=== PATIENT | female | born 1980 | race Two or more races ===

== ENCOUNTER 2024-04-02 18:04 | Emergency (ER) | payer BC ==
[2024-04-02 20:08] LABS: Absolute Basophils 0.1 K/uL (0-0.5); Absolute Eosinophils 0.3 K/uL (0-0.5); Absolute Lymphocytes (CBC) 1.8 K/uL (0.7-4.9); Absolute Monocytes 0.4 K/uL (0.1-1.3); Absolute Neutrophil 3.8 K/uL (1.8-8.0); Basophils % 0.8 % (0-1.3); Eosinophils % 5.4 % (0-4.4); Hemoglobin 12.1 g/dL (12.0-15.0); Lymphocytes % 27.6 % (15.3-44.8); MCH 31.2 pg (27.0-35.0); MCHC 33.7 g/dL (32.0-36.0); MCV 92.7 fL (80-100); MPV 7.7 fL (7.6-11.3); Monocytes % 6.7 % (3.3-12.3); Neutrophils % 59.5 % (41.7-73.7); Nucleated Red Blood Cells % 0.1 % (0-0); Platelets 300 thou/uL (152-406); RBC Red Blood Cell Count 3.88 M/uL (3.86-4.86); Red Cell Distribution Width 16.5 % (12.1-15.2)
[2024-04-02 20:24] LABS: Albumin 3.7 g/dL (3.4-5.0); Albumin/Globulin Ratio 1.1 (1.1-1.8); Anion Gap 4.7 mEq/L (5.0-15.0); Bilirubin Total 0.2 mg/dL (0.2-1.0); Globulin 3.3 g/dL (2.3-3.5); Potassium 3.7 mEq/L (3.5-5.1)
[2024-04-02 20:26] LABS: Specific Gravity 1.016 (1.005-1.030); Sqamous Epithelial <5 /HPF (None Seen); Urine Bacteria <20 /HPF (<20); Urine Bilirubin NEGATIVE (Negative); Urine Blood 3+ (OVER) (Negative); Urine Clarity Extremely Turbid (Clear); Urine Color Light-Brown (Yellow); Urine Culture Reflex Order REFLEXED; Urine Glucose NEGATIVE (Negative); Urine Ketones NEGATIVE (Negative); Urine Microscopic Reflex YN ORDER UMIC; Urine Mucus Slight /HPF (None Seen); Urine Nitrite NEGATIVE (Negative); Urine Protein TRACE (Negative); Urine RBC >50 /HPF (None Seen); Urine Urobilinogen Normal (Normal); Urine WBC 20-50 /HPF (<5)
[2024-04-02] MEDS ORDERED: MORPHINE 4 MG/ML SYR ONE (20:43)
[2024-04-02] MEDS ORDERED: ONDANSETRON 4 MG/2 ML VIAL ONE (20:43)
[2024-04-02] MEDS ORDERED: NA CHLORIDE 0.9% 1,000 ML ONE (20:43)
--- NOTE | 2024-04-02 21:05 | RAD REPORT ---
EXAM DESCRIPTION: CTAbdomen Pelvis W Contrast - 04/02/2024 8:57 pm CLINICAL HISTORY: Abdominal pain. ABD PAIN COMPARISON: <Comparisons> TECHNIQUE: Biphasic CT imaging of the abdomen and pelvis was performed with 100 ml non-ionic IV cont rast. All CT scans are performed using dose optimization technique as appropriate and may include automated exposure control or mA/KV adjustment according to patient size. FINDINGS: The lung bases are clear. The liver, spleen, pancreas, adrenal glands and kidneys are within normal limits. No bowel obstruction, free air, free fluid or abscess. The appendix is not identified as a discrete structure, however, no secondary findings of appendicitis are identified. No evidence of significan t lymphadenopathy. There is a very large mass involving the fundus of the uterus measuring up to 6 cm . This has an irregular appearance. No suspicious bony findings. IMPRESSION: Large fundal uterine mass measuring 6 cm and most likely a fibroid. Followup nonemergent gynecologic assessment would be advised. Elsewhere, no acute abnormality is detected.
--- NOTE | 2024-04-02 22:11 | RAD REPORT ---
EXAM DESCRIPTION: US - Transvaginal Study Probe - 04/02/2024 9:34 pm CLINICAL HISTORY: uterine mass Pelvic pain. COMPARISON: <Comparisons> FINDINGS: Patient pain limited the examination. The uterus is very enlarged. There is likely a large fibroid present in the fundal region measuring approximately 7 cm. Endometrial stripe is difficult t o visualize. Both ovaries appear obscured by bowel gas. No pelvic ascites. IMPRESSION: Large 7 cm fundal fibroid suspected.Limited study.
--- NOTE | 2024-04-02 22:28 | ER ---
Nurse's Notes [facility] Name: Saritha Oliver Age: 43 yrs Sex: Female : 1980 Arrival Date: 04/02/2024 Time: 18:04 Bed 7 Private MD: Diagnosis: uterine fibroid;Dysmenorrhea, unspecified Presentation: 04/02 18:40 Chief complaint: Patient states: Lower abdominal pain X years, worse today, currently jl7 on menstrual cycle. Coronavirus screen: At this time, the client does not indicate any symptoms associated with coronavirus-19. Ebola Screen: No symptoms or risks identified at this time. Initial Sepsis Screen: Does the patient meet any 2 criteria? No. Patient's initial sepsis screen is negative. Does the patient have a suspected source of infection? No. Patient's initial sepsis screen is negative. Risk Assessment: Do you want to hurt yourself or someone else? Patient reports no desire to harm self or others. Onset of symptoms is unknown. 18:40 Method Of Arrival: Ambulatory jl7 18:40 Acuity: JACKSON 3 jl7 Triage Assessment: 18:42 General: Appears in no apparent distress. uncomfortable, Behavior is calm, cooperative, jl7 appropriate for age. Pain: Complains of pain in right lower quadrant and left lower quadrant. GI: Reports lower abdominal pain. 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 - Infectious Disease History:: Denies. - Social history:: Smoking status: unknown. Screenin:09 [facility] ED Fall Risk Assessment (Adult) History of falling in the last 3 months, tm6 including since admission No falls in past 3 months (0 pts) Confusion or Disorientation Intoxicated or Sedated No (0 pts) Impaired Gait No (0 pts) Mobility Assist Device Used No (0 pt) Altered Elimination No (0 pt) Score/Fall Risk Level 0 - 2 = Low Risk Oriented to surroundings, Maintained a safe environment. Abuse screen: Denies threats or abuse. Denies injuries from another. Nutritional screening: No deficits noted. Tuberculosis screening: No symptoms or risk factors identified. Assessment: 18:43 Reassessment: CECE Sprague in triage assessing pt. jl7 20:02 Reassessment: Patient appears in no apparent distress at this time. Patient is alert, nj1 oriented x 3, equal unlabored respirations, skin warm/dry/pink. 21:09 General: Appears in no apparent distress. Behavior is calm, cooperative. Pain: tm6 Complains of pain in abdomen and left lower quadrant and right lower quadrant Pain does not radiate. Pain Quality of pain is described as sharp. Neuro: Level of Consciousness is awake, alert, obeys commands, Oriented to person, place, time, situation. Cardiovascular: No deficits noted. Patient's skin is warm and dry. Respiratory: Airway is patent Respiratory effort is even, unlabored, Respiratory pattern is regular, symmetrical. GI: Abdomen is flat, non-distended, Bowel sounds present X 4 quads. Abd is soft. : Reports vaginal bleeding that is heavy flow. EENT: No signs and/or symptoms were reported regarding the EENT system. Derm: No signs and/or symptoms reported regarding the dermatologic system. Musculoskeletal: No signs and/or symptoms reported regarding the musculoskeletal system. 22:12 Reassessment: Patient appears in no apparent distress at this time. Patient and/or tm6 family updated on plan of care and expected duration. Pain level reassessed. Patient is alert, oriented x 3, equal unlabored respirations, skin warm/dry/pink. 22:35 Reassessment: Patient appears in no apparent distress at this time. Patient and/or tm6 family updated on plan of care and expected duration. Pain level reassessed. Patient is alert, oriented x 3, equal unlabored respirations, skin warm/dry/pink. Vital Signs: 18:44 BP 133 / 86; Pulse 84; Resp 15; Temp 97.9; Pulse Ox 100% ; Weight 54.43 kg; Height 5 jl7 ft. 1 in. ; Pain 10/10; 21:09 BP 143 / 93; Pulse 67; Pulse Ox 100% on R/A; Pain 4/10; tm6 22:11 BP 107 / 74; Pulse 61; Pulse Ox 100% on R/A; Pain 3/10; tm6 22:35 BP 107 / 74; Pulse 67; Resp 19; Temp 97.3(TE); Pulse Ox 100% on R/A; Pain 3/10; tm6 18:44 Body Mass Index 22.67 (54.43 kg, 154.94 cm) jl7 18:44 Pain Scale: Adult jl7 21:09 Pain Scale: Adult tm6 22:11 Pain Scale: Adult tm6 22:35 Pain Scale: Adult tm6 ED Course: 18:06 Patient arrived in ED. mg5 18:07 Anastasia Schultz PA-C is PHCP. sb4 18:07 Zulema Centeno MD is Attending Physician. sb4 18:42 Triage completed. jl7 18:42 Arm band placed on right wrist. jl7 18:46 Patient placed in waiting room, Patient notified of wait time. jl7 19:38 Inserted saline lock: 20 gauge in right antecubital area, using aseptic technique. nj1 Blood collected. 20:08 CBC with Diff Sent. nj1 20:08 CMP Sent. nj1 20:09 Test, Urine Sent. nj1 20:09 Urinalysis w/ reflexes Sent. nj1 20:52 Carolina Stark, RN is Primary Nurse. tm6 20:59 CT Abd/Pelvis - IV Contrast Only In Process Unspecified. EDMS 21:09 Patient has correct armband on for positive identification. Placed in gown. Bed in low tm6 position. Call light in reach. Side rails up X 1. Provided Education on: use of call manzo. Client placed on continuous cardiac and pulse oximetry monitoring. NIBP monitoring applied. Pulse ox on. NIBP on. Door closed. Noise minimized. Lights dimmed. Warm blanket given. 21:36 Transvaginal Study (probe) In Process Unspecified. EDMS 22:27 Sandra Wilkerson MD is Referral Physician. sb4 22:36 No provider procedures requiring assistance completed. IV discontinued, intact, tm6 bleeding controlled, No redness/swelling at site. Pressure dressing applied. Administered Medications: 20:52 Drug: Ondansetron IVP 4 mg IVP once; over 2 minutes Route: IVP; Site: right antecubital;tm6 20:52 Drug: morphine IVP or IV 4 mg IVP once over 4 mins Route: IVP; Infused Over: 4 mins; tm6 Site: right antecubital; 21:09 Drug: NS 0.9% IV 1000 ml IV at 1 bolus Per protocol; 1000 mL bolus Route: IV; Rate: 1 tm6 bolus; Site: right antecubital; 22:37 Follow up: IV Status: Completed infusion; IV Intake: 1000ml tm6 22:35 Drug: Hydrocodone-Acetaminophen PO (7.5 mg-325 mg) 1 tabs PO once Route: PO; tm6 Medication: 21:09 VIS not applicable for this client. tm6 Intake: 22:37 IV: 1000ml; Total: 1000ml. tm6 Outcome: 22:27 Discharge ordered by MD. sb4 22:36 Discharged to home ambulatory, with family, tm6 22:36 Condition: stable 22:36 Discharge instructions given to patient, family, Instructed on discharge instructions, follow up and referral plans. medication usage, Demonstrated understanding of instructions, follow-up care, medications, Prescriptions given X 1, 22:36 Patient left the ED. tm6 Signatures: Dispatcher [employer] EDJak Huang RN RN raf7 Anastasia Schultz, PA-C PA-C [email or web address] Brianne Mccall, RN RN nj1 Manju Olivares mg5 Carolina Stark RN RN tm6 Corrections: (The following items were deleted from the chart) 18:45 18:42 Home Meds: None; jessica lopez
--- NOTE | 2024-04-02 22:28 | EDPHYS ---
[facility] Name: Saritha Oliver Age: 43 yrs Sex: Female : 1980 Arrival Date: 04/02/2024 Time: 18:04 Bed 7 Private MD: ED Physician Zulema Centeno HPI: 04/02 18:49 This 43 yrs old Female presents to ER via Ambulatory with complaints of sb4 Abdominal Pain. 18:49 The patient presents with abdominal pain in the lower abdomen. Onset: The sb4 symptoms/episode began/occurred at an unknown time, and became worse today. The symptoms do not radiate. Associated signs and symptoms: Pertinent positives: vaginal bleeding. The symptoms are described as sharp. Modifying factors: The symptoms are alleviated by nothing, the symptoms are aggravated by nothing. Severity of pain: At its worst the pain was severe today, in the emergency department the pain has improved mildly, is a 7 / 10. The patient has experienced similar episodes in the past, chronically. The patient has not recently seen a physician. patient reports chronic menometrorrhagia. has been seen by [facility] in [facility], had an IUD placed to help but states that her body expelled it about a month ago. reports severe lower abdominal pain over the past few days that ibuprofen is not helping. states she is chronically anemic and frequently receives iron infusions. 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 - Infectious Disease History:: Denies. - Social history:: Smoking status: unknown. ROS: 18:51 Constitutional: Negative for fever, chills, and weight loss, sb4 18:51 : Positive for pelvic pain, vaginal bleeding, 18:51 All other systems are negative, Exam: 18:51 Constitutional: This is a well developed, well nourished patient who is awake, alert, sb4 and in no acute distress. Head/Face: Normocephalic, atraumatic. Eyes: Extra-ocular motions intact. Periorbital areas with no swelling, redness, or edema. ENT: Mucous membranes moist. Cardiovascular: Regular rate and rhythm with a normal S1 and S2. Respiratory: Lungs have equal breath sounds bilaterally, clear to auscultation and percussion. No rales, rhonchi or wheezes noted. No increased work of breathing, no retractions or nasal flaring. Abdomen/GI: Soft, non-tender, no distension. Skin: Warm, dry with normal turgor. Normal color with no rashes, no lesions, and no evidence of cellulitis. MS/ Extremity: Pulses equal, no cyanosis. Neurovascular intact. Full, normal range of motion. Vital Signs: 18:44 BP 133 / 86; Pulse 84; Resp 15; Temp 97.9; Pulse Ox 100% ; Weight 54.43 kg; Height 5 jl7 ft. 1 in. ; Pain 10/10; 21:09 BP 143 / 93; Pulse 67; Pulse Ox 100% on R/A; Pain 4/10; tm6 22:11 BP 107 / 74; Pulse 61; Pulse Ox 100% on R/A; Pain 3/10; tm6 22:35 BP 107 / 74; Pulse 67; Resp 19; Temp 97.3(TE); Pulse Ox 100% on R/A; Pain 3/10; tm6 18:44 Body Mass Index 22.67 (54.43 kg, 154.94 cm) jl7 18:44 Pain Scale: Adult jl7 21:09 Pain Scale: Adult tm6 22:11 Pain Scale: Adult tm6 22:35 Pain Scale: Adult tm6 MDM: 19:09 Patient medically screened. sb4 22:27 Data reviewed: vital signs, nurses notes, lab test result(s), radiologic studies, and sb4 as a result, I will discharge patient. Counseling: I had a detailed discussion with the patient and/or guardian regarding the historical points, exam findings, and any diagnostic results supporting the discharge/admit diagnosis, lab results, radiology results, the need for outpatient follow up, an OB/Gyne specialist, to return to the emergency department if symptoms worsen or persist or if there are any questions or concerns that arise at home. 04/02 18:47 Order name: CBC with Diff; Complete Time: 20:32 sb4 04/02 18:47 Order name: CMP; Complete Time: 20:24 sb4 04/02 18:47 Order name: Test, Urine; Complete Time: 20:28 sb4 04/02 18:47 Order name: Urinalysis w/ reflexes; Complete Time: 20:28 sb4 04/02 20:29 Order name: Urine Culture EDFL 04/02 18:47 Order name: CT Abd/Pelvis - IV Contrast Only; Complete Time: 21:07 sb4 04/02 21:07 Order name: Transvaginal Study (probe); Complete Time: 22:12 sb4 04/02 18:47 Order name: IV Saline Lock; Complete Time: 19:59 sb4 04/02 18:47 Order name: Labs collected and sent; Complete Time: 19:59 sb4 Administered Medications: 20:52 Drug: Ondansetron IVP 4 mg IVP once; over 2 minutes Route: IVP; Site: right antecubital;tm6 20:52 Drug: morphine IVP or IV 4 mg IVP once over 4 mins Route: IVP; Infused Over: 4 mins; tm6 Site: right antecubital; 21:09 Drug: NS 0.9% IV 1000 ml IV at 1 bolus Per protocol; 1000 mL bolus Route: IV; Rate: 1 tm6 bolus; Site: right antecubital; 22:37 Follow up: IV Status: Completed infusion; IV Intake: 1000ml tm6 22:35 Drug: Hydrocodone-Acetaminophen PO (7.5 mg-325 mg) 1 tabs PO once Route: PO; tm6 Disposition Summary: 04/02/24 22:27 Discharge Ordered Notes: Location: Home sb4 Problem: an ongoing problem sb4 Symptoms: have improved sb4 Condition: Stable sb4 Diagnosis - uterine fibroid sb4 - Dysmenorrhea, unspecified sb4 Followup: sb4 - With: Sandra Wilkerson MD - When: As needed - Reason: Recheck today's complaints, Re-evaluation by your physician Discharge Instructions: - Discharge Summary Sheet sb4 - Uterine Fibroids, [id number] sb4 - Dysmenorrhea, [id number] sb4 Forms: - Patient Portal Instructions sb4 - Leadership Thank You Letter sb4 Prescriptions: - ketorolac 10 mg Oral tablet - take 1 tablet ORAL route every 4 to 6 hours for 5 days as needed for pain; do sb4 not exceed 4 doses per 24 hrs; 16 tablet; Refills: 0, Product Selection Permitted Signatures: Dispatcher [employer] EDMS Jak Bertrand, RN RN jl7 Anastasia Schultz PA-C PATrisha sb4 Carolina Stark RN RN tm6 Corrections: (The following items were deleted from the chart) 18:45 18:42 Home Meds: None; jessica jl7 18:48 18:48 CBC+H.LAB.BRZ ordered. EDMS EDMS 18:48 18:48 COMPREHENSIVE METABOLIC PANEL+C.LAB.BRZ ordered. EDMS EDMS 18:48 18:48 Test, Urine+UC.LAB.BRZ ordered. EDMS EDMS 18:48 18:48 Urinalysis+U.LAB.BRZ ordered. EDMS EDMS
[2024-04-02] MEDS ORDERED: HYDROCODONE/APAP 7.5/325 MG TAB ONE (22:30)
[2024-04-02 23:41] VITALS: BP 107/74; TEMP 97.3; O2SAT 100
== END 2024-04-02 22:36 | disposition home or self-care (01) ==
LOC: ER 18:04
DX: D25.9 Leiomyoma of uterus, unspecified (principal)
CPT/HCPCS: 96361; 87088; 85025; 81001; 87086; 36415; 81025; 80053; 74177; 76830; 96375; 96374; 99284; Q9967; J2405; J7030